=== PATIENT | male | born 1990 | race Caucasian/White ===

== ENCOUNTER 2019-09-12 11:23 | Emergency (ER) | payer SELFPAY ==
--- NOTE | 2019-09-12 13:21 | EDM.PDOC ---
ED HPI GENERAL MEDICAL PROBLEM - General Chief Complaint: Eye Problems Stated Complaint: POSSIBLE PINK EYE Time Seen by Provider: 09/12/19 13:16 Source of Information: Reports: Patient History Limitations: Reports: No Limitations - History of Present Illness INITIAL COMMENTS - FREE TEXT/NARRATIVE: HISTORY AND PHYSICAL: History of present illness: Patient is a 28-year-old male who presents to the emergency room with complaints of bilateral eye irritation and waking up with drainage/matted eyes. He reports he is concerned he may have pinkeye. Has not been exposed to anyone who is been sick. Denies any chemical exposure or foreign body concerns. Offers no systemic complaints at this time. Tetanus is up-to-date. Review of systems: As per history of present illness and below otherwise all systems reviewed and negative. Past medical history: As per history of present illness and as reviewed below otherwise noncontributory. Surgical history: As per history of present illness and as reviewed below otherwise noncontributory. Social history: See social history for further information Family history: As per history of present illness and as reviewed below otherwise noncontributory. Physical exam: General: Well-developed and well-nourished 28-year-old male. Alert and oriented. Nontoxic-appearing and in no acute distress. HEENT: Atraumatic, normocephalic, pupils equal and reactive bilaterally, negative for conjunctival pallor or scleral icterus, bilateral scleral injection noted, scant light green crusty drainage to lower lash line, mucous membranes moist, TMs normal bilaterally, throat clear, neck supple, nontender, trachea midline. No drooling or trismus noted. No meningeal signs. No hot potato voice noted. Lungs: Clear to auscultation, breath sounds equal bilaterally, chest nontender. Heart: S1S2, regular rate and rhythm without overt murmur Abdomen: Soft, nondistended, nontender. Skin: Intact, warm, dry. No lesions or rashes noted. Extremities: Atraumatic, moves all extremities per self without difficulty or deficits. Neurovascular unremarkable. Neuro: Awake, alert, oriented. Cranial nerves II through XII unremarkable. Cerebellum unremarkable. Motor and sensory unremarkable throughout. Exam nonfocal. Notes: Medication and supportive care measures were reviewed and discussed. Voices understanding and is agreeable to plan of care. Denies any further questions or concerns at this time. Diagnostics: None Therapeutics: None Prescription: Polytrim Impression: Conjunctivitis, bilateral Plan: 1. Use the eyedrop as directed. Good handwashing as this is contagious. 2. Follow-up with ophthalmology if symptoms continue, worsen or new symptoms develop. 3. Return to the ED as needed and as discussed. Definitive disposition and diagnosis as appropriate pending reevaluation and review of above. Bilateral Eye Pain Score (Numeric/FACES): 3 - Related Data Allergies Allergy/AdvReac Type Severity Reaction Status Date / Time No Known Allergies Allergy Verified 09/12/19 12:19 Home Meds: Home Meds Polymyxin B/Trimethoprim [PolyTrim Ophth Soln] 1 drop EYEBOTH QID 7 Days #1 bottle 09/12/19 [Rx] Past Medical History Musculoskeletal History: Reports: Fracture Other Musculoskeletal History: L shoulder - Infectious Disease History 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 Social & Family History - Family History Family Medical History: Noncontributory - Tobacco Use Smoking Status *Q: Never Smoker Second Hand Smoke Exposure: No - Caffeine Use Caffeine Use: Reports: Coffee - Recreational Drug Use Recreational Drug Use: No ED ROS GENERAL - Review of Systems Review Of Systems: Comprehensive ROS is negative, except as noted in HPI. ED EXAM GENERAL W FULL EYE - Physical Exam Exam: See Below (See dictation) Course - Vital Signs Last Recorded V/S: Last Vital Signs Temp 97.5 F 09/12/19 12:20 Pulse 62 09/12/19 12:20 Resp 16 09/12/19 12:20 BP 146/91 H 09/12/19 12:20 Pulse Ox 97 09/12/19 12:20 Departure - Departure Time of Disposition: 13:21 Disposition: Home, Self-Care 01 Clinical Impression: Conjunctivitis Qualifiers: Conjunctivitis type: acute Acute conjunctivitis type: bacterial Laterality: bilateral Qualified Code(s): H10.33 - Unspecified acute conjunctivitis, bilateral - Discharge Information Prescriptions: Polymyxin B/Trimethoprim [PolyTrim Ophth Soln] 1 drop EYEBOTH QID 7 Days #1 bottle Instructions: Bacterial Conjunctivitis, [id number] Referrals: PCP,None [Primary Care Provider] - Forms: ED Department Discharge Additional Instructions: The following information is given to patients seen in the emergency department who are being discharged to home. This information is to outline your options for follow-up care. We provide all patients seen in our emergency department with a follow-up referral. The need for follow-up, as well as the timing and circumstances, are variable depending upon the specifics of your emergency department visit. If you don't have a primary care physician on staff, we will provide you with a referral. We always advise you to contact your personal physician following an emergency department visit to inform them of the circumstance of the visit and for follow-up with them and/or the need for any referrals to a consulting specialist. The emergency department will also refer you to a specialist when appropriate. This referral assures that you have the opportunity for follow-up care with a specialist. All of these measure are taken in an effort to provide you with optimal care, which includes your follow-up. Under all circumstances we always encourage you to contact your private physician who remains a resource for coordinating your care. When calling for follow-up care, please make the office aware that this follow-up is from your recent emergency room visit. If for any reason you are refused follow-up, please contact the [facility] Emergency Department at and asked to speak to the emergency department charge nurse. [facility] [address] [place] [address] [id number] 1. Use the eyedrop as directed. Good handwashing as this is contagious. 2. Follow-up with ophthalmology if symptoms continue, worsen or new symptoms develop. 3. Return to the ED as needed and as discussed. Sepsis Event Note - Evaluation Sepsis Screening Result: No Definite Risk - Focused Exam Vital Signs: Vital Signs Temp Pulse Resp BP Pulse Ox 09/12/19 12:20 97.5 F 62 16 146/91 H 97 Date Exam was Performed: 09/12/19 Time Exam was Performed: 13:22
== END 2019-09-12 13:28 | disposition home or self-care (01) ==
LOC: MW.ED 11:23
CPT/HCPCS: 99282; 99283

== ENCOUNTER 2020-02-19 20:06 | Emergency (ER) | payer BC ==
[2020-02-19] MEDS ORDERED: Lidocaine 1% 10 ML MDV INJECT ONE (21:12)
--- NOTE | 2020-02-19 21:16 | EDM.PDOC ---
ED HPI GENERAL MEDICAL PROBLEM - General Chief Complaint: Laceration Stated Complaint: LEFT HAND INJURY LACERATION Time Seen by Provider: 02/19/20 21:14 Source of Information: Reports: Patient History Limitations: Reports: No Limitations - History of Present Illness INITIAL COMMENTS - FREE TEXT/NARRATIVE: HISTORY AND PHYSICAL: History of present illness: This is a 29-year-old gentleman who presents ER today secondary to a laceration to his nondominant left hand between the webspace of his thumb and index finger that occurred while he was trying to open up a package of chicken. Patient denies any neurological deficits at this time. Patient denies any other symptomatology. Patient has any fevers, shakes, chills, nausea, vomiting, diarrhea, dysuria, frequency, urgency, chest pain, shortness of breath. Patient's tetanus status is up-to-date. Patient has no significant past medical history. Patient has no known drug allergies. Patient denies any alcohol or drugs. Review of systems: As per history of present illness and below otherwise all systems reviewed and negative. Past medical history: As per history of present illness and as reviewed below otherwise noncontributory. Surgical history: As per history of present illness and as reviewed below otherwise noncontributory. Social history: No reported history of drug or alcohol abuse. Family history: As per history of present illness and as reviewed below otherwise noncontributory. Physical exam: HEENT: Atraumatic, normocephalic, pupils reactive, negative for conjunctival pallor or scleral icterus, mucous membranes moist, throat clear, neck supple, nontender, trachea midline. Lungs: Clear to auscultation, breath sounds equal bilaterally, chest nontender. Heart: S1S2, regular, negative for clicks, rubs, or JVD. Abdomen: Soft, nondistended, nontender. Negative for masses or hepatosplenomegaly. Negative for costovertebral tenderness. Pelvis: Stable nontender. Genitourinary: Deferred. Rectal: Deferred. Extremities: Atraumatic, negative for cords or calf pain. Neurovascular unremarkable. Neuro: Awake, alert, oriented. Cranial nerves II through XII unremarkable. Cerebellum unremarkable. Motor and sensory unremarkable throughout. Exam nonfocal. CR physical exam is significant for a 2 cm laceration at the webspace between his thumb and index finger of his left hand. Patient is neurovascularly intact. No tendon or ligamentous injury is identified. Patient is neurologically intact. Patient has no foreign body identified. Therapeutics: Impression: 29-year-old gentleman who presents ER today with a laceration to his left hand. Patient's tetanus status up-to-date. Patient will be sutured in the ED. Plan: [] Definitive disposition and diagnosis as appropriate pending reevaluation and review of above. Left Hand Pain Score (Numeric/FACES): 3 - Related Data Allergies Allergy/AdvReac Type Severity Reaction Status Date / Time No Known Allergies Allergy Verified 02/19/20 20:19 Home Meds: Home Meds . [No Known Home Meds] 02/19/20 [History] Past Medical History - Past Health History Medical/Surgical History: Denies Medical/Surgical History HEENT History: Reports: None Cardiovascular History: Reports: None Respiratory History: Reports: None Gastrointestinal History: Reports: None Genitourinary History: Reports: None Musculoskeletal History: Reports: Fracture Other Musculoskeletal History: Left Collarbone Neurological History: Reports: None Psychiatric History: Reports: None Endocrine/Metabolic History: Reports: None Hematologic History: Reports: None Immunologic History: Reports: None Oncologic (Cancer) History: Reports: None Dermatologic History: Reports: None - Infectious Disease History Infectious Disease History: Reports: None - Past Surgical History Head Surgeries/Procedures: Reports: None Social & Family History - Family History Family Medical History: Noncontributory - Tobacco Use Smoking Status *Q: Never Smoker Second Hand Smoke Exposure: Yes - Caffeine Use Caffeine Use: Reports: Coffee - Alcohol Use Days Per Week of Alcohol Use: 7 Number of Drinks Per Day: 2 Total Drinks Per Week: 14 - Recreational Drug Use Recreational Drug Use: No ED ROS GENERAL - Review of Systems Review Of Systems: Comprehensive ROS is negative, except as noted in HPI. ED EXAM, SKIN/RASH Exam: See Below ED SKIN PROCEDURES - Laceration/Wound Repair Left Hand Appearance: Linear, Clean Distal NVT: Neuro & Vascular Intact, No Tendon Injury Anesthetic Type: Local Local Anesthesia - Lidocaine (Xylocaine): 1% Plain Local Anesthetic Volume: 2cc Skin Prep: Saline, Sterile Drape Saline Irrigation (cc's): 100 Exploration/Debridement/Repair: Wound Explored Closed with: Sutures Lac/Wound length In cm: 2 Suture Size: 4-0 # of Sutures: 2 Suture Type: Prolene Sterile Dressing Applied: Nurse Tetanus Status Addressed: Yes Complications: No Course - Vital Signs Last Recorded V/S: Last Vital Signs Temp 97.6 F 02/19/20 20:19 Pulse 65 02/19/20 20:19 Resp 14 02/19/20 20:19 BP 177/105 H 02/19/20 20:19 Pulse Ox 98 02/19/20 20:19 - Orders/Labs/Meds Meds: Medications Discontinued Medications Generic Name Dose Route Start Last Admin Trade Name Ceferino PRN Reason Stop Dose Admin Lidocaine HCl 10 ml 02/19/20 21:12 Xylocaine 1% INJECT 02/19/20 21:13 ONETIME ONE Lidocaine HCl Confirm 02/19/20 21:16 Xylocaine-Mpf 1% Administered 02/19/20 21:17 Dose 5 ml .ROUTE .STK-MED ONE Departure - Departure Time of Disposition: 21:24 Disposition: Home, Self-Care 01 Condition: Good Clinical Impression: Laceration of hand - Discharge Information *PRESCRIPTION DRUG MONITORING PROGRAM REVIEWED*: Not Applicable *COPY OF PRESCRIPTION DRUG MONITORING REPORT IN PATIENT TADEO: Not Applicable Instructions: Laceration Care, Adult, Sutures, [place], or Adhesive Wound Closure, [id number] Referrals: PCP,None [Primary Care Provider] - Forms: ED Department Discharge Additional Instructions: You have 2 sutures placed today in the emergency department. You will need a wound check and 2 days if there is any signs or symptoms of infection including redness, warmth, drainage. Sutures should be removed in 7 days. Sepsis Event Note (ED) - Evaluation Sepsis Screening Result: No Definite Risk - Focused Exam Vital Signs: Vital Signs Temp Pulse Resp BP Pulse Ox 02/19/20 20:19 97.6 F 65 14 177/105 H 98
== END 2020-02-19 21:35 | disposition home or self-care (01) ==
LOC: MW.ED 20:06
DX: S61.412A Laceration without foreign body of left hand, initial encounter (principal); Z77.22 Contact with and (suspected) exposure to environmental tobacco smoke (acute) (chronic); W26.8XXA Contact with other sharp object(s), not elsewhere classified, initial encounter
CPT/HCPCS: 12001; 99282; J2001

== ENCOUNTER 2020-09-23 18:16 | Emergency (ER) | payer BC, OTHER ==
--- NOTE | 2020-09-23 18:27 | PCM.SN.2 ---
- Free Text/Narrative Note: Heart rate = 76 bpm, normal sinus rhythm, normal QRS interval, no STEMI. EKG and rhythm strip interpreted by me at 1818
[2020-09-23] MEDS ORDERED: Meclizine 25 MG Tab PO ONE (19:20)
--- NOTE | 2020-09-23 19:25 | EDM.PDOC ---
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 The dizziness was a feeling that things were moving but he also had some visual rotational vertigo. The rotational vertigo that he visualized was not intense or prolonged. He has had some dizzy episodes since that last about 15 seconds or more. He does not have diaphoresis. He does have nausea when he is dizzy. He cannot bring the dizziness on with change in position change in head position and it happens as well at rest and with exertion. He frequently can walk across the room and exert himself without having an episode. He has no chest pain or shortness of breath. Patient does not smoke, he is not diabetic, he does not get treated for blood pressure or cholesterol. His family history is negative except for a stroke in his mother related to a drug use disorder. Patient saw an emergency service provider in [facility] the day of his dizziness and had lab work which I reviewed. His hemoglobin was 16 but his white count was 12.1 the rest of the lab looks unremarkable including comprehensive metabolic panel, urine analysis. He says his EKG and chest x-ray were normal. Review of systems: As per history of present illness and below otherwise all systems reviewed and negative. Past medical history: As per history of present illness and as reviewed below otherwise noncontributory. Surgical history: As per history of present illness and as reviewed below otherwise noncontributory. Social history: No reported history of drug or alcohol abuse. Family history: As per history of present illness and as reviewed below otherwise noncontributory. Physical exam: Constitutional - well developed, well-nourished and in no acute distress HEENT - normocephalic, no evidence of trauma - external nose and mouth normal - no mass in neck and no JVD - mucosae moist. TMs normal. Sinus nontender. EYES - full EOM, PERRL, no icterus - no evidence of inflammation, injection, or drainage Respiratory - no respiratory distress, equal bilateral expansion, lungs clear to auscultation and no abnormal lung sounds Cardiovascular - Regular Rhythm with S1 and S2 appreciated and no murmur, gallop or rub. GI - abdomen soft without distension or organomegaly - normal bowel sounds - no guard or rebound Musculoskeletal no gross deformity of long bones or joints - no tenderness, swelling or edema Neurologic -tender neurologic exam is normal. Alert and oriented times four - CN II-XII grossly intact - motor sensory and coordination symmetrically normal Station and gait is normal including heel-to-toe walk. He says he had trouble with ataxia when he was coming into the department because he was having one of his spells. 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 [] Therapeutics: [] Impression: [] Plan: [] Definitive disposition and diagnosis as appropriate pending reevaluation and review of above. - Related Data Allergies Allergy/AdvReac Type Severity Reaction Status Date / Time No Known Allergies Allergy Verified 09/23/20 18:57 Home Meds: Home Meds Meclizine HCl 25 mg PO TID PRN #21 tablet 09/23/20 [Rx] Past Medical History - Past Health History Medical/Surgical History: Denies Medical/Surgical History HEENT History: Reports: None Cardiovascular History: Reports: None Respiratory History: Reports: None Gastrointestinal History: Reports: None Genitourinary History: Reports: None Musculoskeletal History: Reports: Fracture Other Musculoskeletal History: Left Collarbone Neurological History: Reports: None Psychiatric History: Reports: None Endocrine/Metabolic History: Reports: None Hematologic History: Reports: None Immunologic History: Reports: None Oncologic (Cancer) History: Reports: None Dermatologic History: Reports: None - Infectious Disease History 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 - Past Surgical History Head Surgeries/Procedures: Reports: None Social & Family History - Family History Family Medical History: No Pertinent Family History - Caffeine Use Caffeine Use: Reports: Energy Drinks - Recreational Drug Use Recreational Drug Use: No ED ROS GENERAL - Review of Systems Review Of Systems: Comprehensive ROS is negative, except as noted in HPI. ED EXAM, GENERAL - Physical Exam Exam: See Below Free Text/Narrative:: My physical exam is in the HPI Course - Vital Signs Text/Narrative:: 2034 hours. Patient's episodes have stopped with the medication. CT is normal. Patient is very low risk for stroke. Letter to have primary care keep an eye on his blood pressure and the patient to try meclizine and stay well-hydrated. Last Recorded V/S: Last Vital Signs Temp 36.8 C 09/23/20 18:35 Pulse 71 09/23/20 20:31 Resp 18 09/23/20 20:31 BP 134/93 H 09/23/20 20:31 Pulse Ox 96 09/23/20 20:31 - Orders/Labs/Meds Orders: Active Orders 24 hr Category Date Time Status Blood Glucose Check, Bedside [RC] ONETIME Care 09/23/20 19:20 Active Labs: Laboratory Tests 09/23/20 09/23/20 Range/Units 18:22 19:36 WBC 12.23 H (4.0-11.0) K/uL RBC 5.76 (4.50-5.90) M/uL Hgb 17.1 H (13.0-17.0) g/dL Hct 50.8 H (38.0-50.0) % MCV 88.2 (80.0-98.0) fL MCH 29.7 (27.0-32.0) pg MCHC 33.7 (31.0-37.0) g/dL RDW Std Deviation 44.2 (28.0-62.0) fl RDW Coeff of Konstantin 14 (11.0-15.0) % Plt Count 301 (150-400) K/uL MPV 11.00 (7.40-12.00) fL Neut % (Auto) 37.1 L (48.0-80.0) % Lymph % (Auto) 52.8 H (16.0-40.0) % [place] % (Auto) 7.4 (0.0-15.0) % Eos % (Auto) 2.1 (0.0-7.0) % Baso % (Auto) 0.6 (0.0-1.5) % Neut # (Auto) 4.5 (1.4-5.7) K/uL Lymph # (Auto) 6.5 H (0.6-2.4) K/uL [place] # (Auto) 0.9 H (0.0-0.8) K/uL Eos # (Auto) 0.3 (0.0-0.7) K/uL Baso # (Auto) 0.1 (0.0-0.1) K/uL Nucleated RBC % 0.0 /100WBC Nucleated RBCs # 0 K/uL POC Glucose 88 (60-110) mg/dL Meds: Medications Discontinued Medications Generic Name Dose Route Start Last Admin Trade Name Freq PRN Reason Stop Dose Admin Meclizine HCl 25 mg 09/23/20 19:20 09/23/20 19:36 Antivert PO 09/23/20 19:21 25 mg ONETIME ONE Administration Departure - Departure Time of Disposition: 20:35 Disposition: Home, Self-Care 01 Condition: Good Clinical Impression: Vertigo - Discharge Information Prescriptions: Meclizine HCl 25 mg PO TID PRN #21 tablet PRN Reason: Dizziness Instructions: Dizziness, [id number] Referrals: PCP,None [Primary Care Provider] - Forms: ED Department Discharge Additional Instructions: Stay well-hydrated. Try the medicine. Closest ENT is in [place]. 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 This information is to outline your options for follow-up care. We provide all patients seen in our emergency department with a follow-up referral. The need for follow-up, as well as the timing and circumstances, are variable depending upon the specifics of your emergency department visit. If you don't have a primary care physician on staff, we will provide you with a referral. We always advise you to contact your personal physician following an emergency department visit to inform them of the circumstance of the visit and for follow-up with them and/or the need for any referrals to a consulting specialist. The emergency department will also refer you to a specialist when appropriate. This referral assures that you have the opportunity for follow-up care with a specialist. All of these measure are taken in an effort to provide you with optimal care, which includes your follow-up. Under all circumstances we always encourage you to contact your private physician who remains a resource for coordinating your care. When calling for follow-up care, please make the office aware that this follow-up is from your recent emergency room visit. If for any reason you are refused follow-up, please contact the [facility] Emergency Department at and asked to speak to the emergency department charge nurse. Sepsis Event Note (ED) - Evaluation Sepsis Screening Result: No Definite Risk - Focused Exam Vital Signs: Vital Signs Temp Pulse Resp BP Pulse Ox 09/23/20 20:31 71 18 134/93 H 96 09/23/20 18:35 36.8 C 75 22 H 170/116 H 96 - My Orders Last 24 Hours: My Active Orders 09/23/20 19:20 Blood Glucose Check, Bedside [RC] ONETIME - Assessment/Plan Last 24 Hours: My Active Orders 09/23/20 19:20 Blood Glucose Check, Bedside [RC] ONETIME
--- NOTE | 2020-09-23 19:59 | CT ---
Indication: Dizziness Technique: Noncontrast head CT Comparison: No comparison Findings: Axial noncontrast images through the brain parenchyma demonstrates no acute intracranial hemorrhage or mass. No midline shift. No abnormal extra-axial air fluid collections were seen. Paranasal sinuses mastoid air cells, skull and scalp appear unremarkable. Impression: No acute intracranial hemorrhage or mass. Please note that all CT scans at this facility use dose modulation, iterative reconstruction, and/or weight-based dosing when appropriate to reduce radiation dose to as low as reasonably achievable. Dictated by Sheree Collins MD @ Sep 23 2020 7:54PM Signed by Dr. Sheree Collins @ Sep 23 2020 7:57PM
== END 2020-09-23 20:38 | disposition home or self-care (01) ==
LOC: MW.ED 18:16
DX: R42 Dizziness and giddiness (principal); R11.0 Nausea
CPT/HCPCS: 36415; 70450; 82962; 85025; 93005; 99284; A9270; 99282

== ENCOUNTER 2020-09-28 19:06 | Observation (INO) | payer OTHER ==
--- NOTE | 2020-09-28 19:14 | EDM.PDOC ---
ED HPI GENERAL MEDICAL PROBLEM - General Stated Complaint: CHEST PAIN Time Seen by Provider: 09/28/20 19:07 - History of Present Illness INITIAL COMMENTS - FREE TEXT/NARRATIVE: 30-year-old male who recently started metoprolol for hypertension who is presen ting with chest pain. He describes a currently 1 out of 10 substernal chest pressure that is associated with right arm numbness and radiation into the right jaw that started approximately 1 to 2 hours prior to arrival at its worst it was 5 out of 10. No tearing pain it did not radiate to the back no shortness of breath no cough no change with exertion or deep breathing. He denies lower extremity pain or swelling. He did used to be a moderate daily drinker but has not had any alcohol in the last 7 days. Patient was seen relatively recently last week for dizziness and hypertension he had negative work-ups at that time he followed up with his primary provider as directed and was started on metoprolol earlier this week. He reports he been compliant with that. He did take 4 baby aspirin's about 2 hours ago. He denies history of similar symptoms in the past. He is a non-smoker. Upper Chest Pain Score (Numeric/FACES): 1 - Related Data Allergies Allergy/AdvReac Type Severity Reaction Status Date / Time No Known Allergies Allergy Verified 09/28/20 19:20 Home Meds: Home Meds Metoprolol Tartrate 25 mg PO DAILY 09/28/20 [History] Past Medical History - Past Health History Medical/Surgical History: Denies Medical/Surgical History HEENT History: Reports: None Cardiovascular History: Reports: None Respiratory History: Reports: None Gastrointestinal History: Reports: None Genitourinary History: Reports: None Musculoskeletal History: Reports: Fracture Other Musculoskeletal History: Left Collarbone Neurological History: Reports: None Psychiatric History: Reports: None Endocrine/Metabolic History: Reports: None Hematologic History: Reports: None Immunologic History: Reports: None Oncologic (Cancer) History: Reports: None Dermatologic History: Reports: None - Infectious Disease History 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 - Past Surgical History Head Surgeries/Procedures: Reports: None Social & Family History - Family History Family Medical History: No Pertinent Family History - Caffeine Use Caffeine Use: Reports: Energy Drinks ED ROS GENERAL - Review of Systems Review Of Systems: See Below Free Text/Narrative/Comment: General: No fever. Skin: No rash. Eyes: No vision problems. ENT: No sore throat. Neck: No neck stiffness. Respiratory: No shortness of breath. Cardiac: Per HPI Gastrointestinal: No nausea, vomiting or abdominal pain. Urinary: No dysuria. Musculoskeletal: No myalgias/arthralgias. Neurologic: No headache. ED EXAM, GENERAL - Physical Exam Exam: See Below Free Text/Narrative:: General Appearance: No acute distress, appears comfortable Skin: No rash HEENT: Normocephalic/atraumatic, sclera anicteric, mucous membranes moist Neck: Normal range of motion Chest and Lungs: Bilateral breath sounds, clear to auscultation Cardiovascular: Regular rate and rhythm, no murmur Abdomen: Soft, non-tender Back: Normal Musculoskeletal: No edema or tenderness Neurologic: Awake, alert, no obvious deficits, moving all extremities Psychiatric: Appropriate, cooperative #1 Interpretation EKG Date: 09/28/20 Time: 19:13 EKG Interpretation Comments: Normal sinus rhythm with a rate of 62 LA interval borderline prolonged at 220 right axis deviation no acute ischemia Course - Vital Signs Last Recorded V/S: Last Vital Signs Temp 96.3 F L 09/28/20 19:15 Pulse 61 09/28/20 19:35 Resp 14 09/28/20 19:35 BP 137/84 09/28/20 19:35 Pulse Ox 98 09/28/20 19:35 - Orders/Labs/Meds Orders: Active Orders 24 hr Category Date Time Status Patient Status [ADT] Routine ADT 09/28/20 22:28 Ordered EKG 12 Lead [EKG Documentation Completion] [RC] ROUTINE Care 09/28/20 21:10 Active Nitroglycerin [Nitrostat] Med 09/28/20 19:15 Active 0.4 mg SL Q5M PRN Sodium Chloride 0.9% [Saline Flush] Med 09/28/20 19:15 Active 10 ml FLUSH ASDIRECTED PRN Sodium Chloride 0.9% [Saline Flush] Med 09/28/20 19:15 Active 2.5 ml FLUSH ASDIRECTED PRN Saline Lock Insert [OM.PC] Stat Oth 09/28/20 19:15 Ordered Medication Orders Nitroglycerin (Nitrostat) 0.4 mg SL Q5M PRN PRN Reason: Chest Pain Last Admin: 09/28/20 19:29 Dose: 0.4 mg Documented by: BREWKRI Sodium Chloride (Saline Flush) 10 ml FLUSH ASDIRECTED PRN PRN Reason: Keep Vein Open Sodium Chloride (Saline Flush) 2.5 ml FLUSH ASDIRECTED PRN PRN Reason: Keep Vein Open Labs: Laboratory Tests 09/28/20 09/28/20 09/28/20 Range/Units 17:15 17:16 19:15 WBC 10.25 (4.0-11.0) K/uL RBC 5.70 (4.50-5.90) M/uL Hgb 17.2 H (13.0-17.0) g/dL Hct 50.4 H (38.0-50.0) % MCV 88.4 (80.0-98.0) fL MCH 30.2 (27.0-32.0) pg MCHC 34.1 (31.0-37.0) g/dL RDW Std Deviation 44.2 (28.0-62.0) fl RDW Coeff of Konstantin 14 (11.0-15.0) % Plt Count 284 (150-400) K/uL MPV 11.20 (7.40-12.00) fL Neut % (Auto) 40.8 L (48.0-80.0) % Lymph % (Auto) 48.0 H (16.0-40.0) % [place] % (Auto) 8.0 (0.0-15.0) % Eos % (Auto) 2.6 (0.0-7.0) % Baso % (Auto) 0.6 (0.0-1.5) % Neut # (Auto) 4.2 (1.4-5.7) K/uL Lymph # (Auto) 4.9 H (0.6-2.4) K/uL [place] # (Auto) 0.8 (0.0-0.8) K/uL Eos # (Auto) 0.3 (0.0-0.7) K/uL Baso # (Auto) 0.1 (0.0-0.1) K/uL Nucleated RBC % 0.0 /100WBC Nucleated RBCs # 0 K/uL D-Dimer, Quantitative 0.23 (0.0-0.50) mg/L FEU Sodium 139 (136-148) mmol/L Potassium 3.9 (3.5-5.1) mmol/L Chloride 103 (98-107) mmol/L Carbon Dioxide 22.6 (21.0-32.0) mmol/L BUN 21 H (7.0-18.0) mg/dL Creatinine 1.1 (0.8-1.3) mg/dL Est Cr Clr Drug Dosing 100.47 mL/min Estimated GFR (MDRD) > 60.0 ml/min Glucose 96 (74-106) mg/dL Calcium 9.6 (8.5-10.1) mg/dL Total Bilirubin 0.3 (0.2-1.0) mg/dL AST 34 (15-37) IU/L ALT 87 H (14-63) IU/L Alkaline Phosphatase 55 (46-116) U/L Troponin I < 0.050 (0.000-0.056) ng/mL Total Protein 8.6 H (6.4-8.2) g/dL Albumin 4.5 (3.4-5.0) g/dL Globulin 4.1 H (2.6-4.0) g/dL Albumin/Globulin Ratio 1.1 (0.9-1.6) SARS-CoV-2 RNA ([facility]) (NEGATIVE) 09/28/20 09/28/20 Range/Units 20:30 21:26 WBC (4.0-11.0) K/uL RBC (4.50-5.90) M/uL Hgb (13.0-17.0) g/dL Hct (38.0-50.0) % MCV (80.0-98.0) fL MCH (27.0-32.0) pg MCHC (31.0-37.0) g/dL RDW Std Deviation (28.0-62.0) fl RDW Coeff of Konstantin (11.0-15.0) % Plt Count (150-400) K/uL MPV (7.40-12.00) fL Neut % (Auto) (48.0-80.0) % Lymph % (Auto) (16.0-40.0) % [place] % (Auto) (0.0-15.0) % Eos % (Auto) (0.0-7.0) % Baso % (Auto) (0.0-1.5) % Neut # (Auto) (1.4-5.7) K/uL Lymph # (Auto) (0.6-2.4) K/uL [place] # (Auto) (0.0-0.8) K/uL Eos # (Auto) (0.0-0.7) K/uL Baso # (Auto) (0.0-0.1) K/uL Nucleated RBC % /100WBC Nucleated RBCs # K/uL D-Dimer, Quantitative (0.0-0.50) mg/L FEU Sodium (136-148) mmol/L Potassium (3.5-5.1) mmol/L Chloride (98-107) mmol/L Carbon Dioxide (21.0-32.0) mmol/L BUN (7.0-18.0) mg/dL Creatinine (0.8-1.3) mg/dL Est Cr Clr Drug Dosing mL/min Estimated GFR (MDRD) ml/min Glucose (74-106) mg/dL Calcium (8.5-10.1) mg/dL Total Bilirubin (0.2-1.0) mg/dL AST (15-37) IU/L ALT (14-63) IU/L Alkaline Phosphatase (46-116) U/L Troponin I < 0.050 (0.000-0.056) ng/mL Total Protein (6.4-8.2) g/dL Albumin (3.4-5.0) g/dL Globulin (2.6-4.0) g/dL Albumin/Globulin Ratio (0.9-1.6) SARS-CoV-2 RNA ([facility]) NEGATIVE (NEGATIVE) Meds: Medications Generic Name Dose Route Start Last Admin Trade Name Freq PRN Reason Stop Dose Admin Nitroglycerin 0.4 mg 09/28/20 19:15 09/28/20 19:29 Nitrostat SL 0.4 mg Q5M PRN Administration Chest Pain Sodium Chloride 10 ml 09/28/20 19:15 Saline Flush FLUSH ASDIRECTED PRN Keep Vein Open Sodium Chloride 2.5 ml 09/28/20 19:15 Saline Flush FLUSH ASDIRECTED PRN Keep Vein Open Discontinued Medications Generic Name Dose Route Start Last Admin Trade Name Freq PRN Reason Stop Dose Admin Acetaminophen 650 mg 09/28/20 19:37 09/28/20 19:50 Tylenol PO 09/28/20 19:38 650 mg NOW ONE Administration Departure - Departure Time of Disposition: 22:29 Disposition: Refer to Observation Condition: Good Clinical Impression: Chest pain - Discharge Information Referrals: PCP,None [Primary Care Provider] - Sepsis Event Note (ED) - Focused Exam Vital Signs: Vital Signs Temp Pulse Resp BP BP Pulse Ox 09/28/20 19:35 61 14 137/84 98 09/28/20 19:29 149/96 H 09/28/20 19:15 96.3 F L 70 18 162/108 H 99 - My Orders Last 24 Hours: My Active Orders 09/28/20 19:15 Nitroglycerin [Nitrostat] 0.4 mg SL Q5M PRN Sodium Chloride 0.9% [Saline Flush] 10 ml FLUSH ASDIRECTED PRN Sodium Chloride 0.9% [Saline Flush] 2.5 ml FLUSH ASDIRECTED PRN Saline Lock Insert [OM.PC] Stat 09/28/20 21:10 EKG 12 Lead [EKG Documentation Completion] [RC] ROUTINE 09/28/20 22:28 Patient Status [ADT] Routine - Assessment/Plan Last 24 Hours: My Active Orders 09/28/20 19:15 Nitroglycerin [Nitrostat] 0.4 mg SL Q5M PRN Sodium Chloride 0.9% [Saline Flush] 10 ml FLUSH ASDIRECTED PRN Sodium Chloride 0.9% [Saline Flush] 2.5 ml FLUSH ASDIRECTED PRN Saline Lock Insert [OM.PC] Stat 09/28/20 21:10 EKG 12 Lead [EKG Documentation Completion] [RC] ROUTINE 09/28/20 22:28 Patient Status [ADT] Routine Assessment:: 30-year-old male with history of hypertension newly on metoprolol 25 mg daily presenting with chest pain. It is a tightness sensation it does radiate to the neck. Will calculate a heart score. His EKG shows mild right axis deviation but no signs of acute ischemia. Given this finding CBC CMP D-dimer troponin order chest x-ray as well. I do think he is low risk for PE and would not further evaluate if D-dimer is normal. No concern for Covid. Final disposition pending response to therapy and work-up as well as heart score. He currently has 1 out of 10 substernal chest discomfort so we will trial nitroglycerin. 1940: sx improved with single nitro, however patient now with headache and will give APAP. 2014: Initial labs normal, CXR unremarkable. HEART score is 4. Patient is symp miladis-free after his nitroglycerin blood pressure also much improved. Given his heart score and after discussion with the patient will discuss with internal medicine about admission for observation for moderate risk chest pain with serial enzymes and reassessment. 2228: Pt discussed with Dr. Ramsey, will admit for observation to telemetry.
[2020-09-28] MEDS ORDERED: Sodium Chloride 0.9% 2.5 ML Syringe FLUSH PRN (19:15)
[2020-09-28] MEDS ORDERED: Nitroglycerin 0.4 MG Tab.SL SL PRN (19:15)
[2020-09-28] MEDS ORDERED: Sodium Chloride 0.9% 10 ML Syringe FLUSH PRN (19:15)
[2020-09-28] MEDS ORDERED: Acetaminophen 325 MG Tab PO ONE (19:37)
--- NOTE | 2020-09-28 19:58 | CR ---
INDICATION: Chest pain, tightness TECHNIQUE: Chest radiograph 1 view COMPARISON: None FINDINGS: Moderate degradation of image quality noted due to body habitus and lordotic technique. Mediastinum: The mediastinum is normal in appearance. The heart silhouette is normal in size and morphology. Lung: Both lungs are unremarkable in appearance. No sign of pleural effusion seen. No pneumothorax is identified. Bone and Soft tissue: Metallic plate ORIF of the left clavicle is noted. IMPRESSION: 1. No acute cardiopulmonary disease is seen. Dictated by Young López MD @ 09/28/2020 7:56:23 PM Dictated by: Young López MD @ 09/28/2020 19:56:27 (Electronically Signed)
[2020-09-28 20:10] LABS: BLOOD UREA NITROGEN,BUN 21 mg/dL (7.0-18.0); CARBON DIOXIDE,CO2 22.6 mmol/L (21.0-32.0); CHLORIDE,CL 103 mmol/L (98-107); GLUCOSE RANDOM 96 mg/dL (74-106); POTASSIUM,K 3.9 mmol/L (3.5-5.1); SODIUM,NA 139 mmol/L (136-148)
[2020-09-28] MEDS ORDERED: Ondansetron 4 MG/2 ML SDV IVPUSH PRN (23:03)
[2020-09-28] MEDS ORDERED: Albuterol/Ipratropium 3.0-0.5 MG/3 ML Neb Soln NEB PRN (23:03)
[2020-09-28] MEDS ORDERED: Acetaminophen 325 MG Tab PO PRN (23:03)
[2020-09-28] MEDS ORDERED: Pantoprazole 40 MG in Sodium Chloride 0.9% 10 ML IV ONE (23:03)
[2020-09-28] MEDS: Aspirin 81 MG Tab.Chew PO SCH (23:49)
[2020-09-29 06:38] LABS: HEMOGLOBIN A1C 5.4 %
--- NOTE | 2020-09-29 08:30 | PCM.HP.2 ---
<Elizabet Gomez - Last Filed: 09/29/20 12:29> H&P History of Present Illness - General Date of Service: 09/29/20 Admit Problem/Dx: Admission Diagnosis/Problem Admission Diagnosis/Problem Chest pain Source of Information: Patient - History of Present Illness Initial Comments - Free Text/Narative: Patient is a 30-year-old male with a significant past medical history of hypertension presenting yesterday to ED after having acute onset chest pain with radiation into the jaw and right arm. Mentions he was driving to [place] when when the symptoms appeared and therefore presented himself to the ED here in [place]. Patient states she has had similar episode like this before in the past which resolved and were almost always accompanied with elevated blood pressure. Patient has been started on his metoprolol and has been taking his medication without fail however during this particular episode of pain did not check his blood pressure. Patient otherwise denies any fevers, chills, bodies, shortness of breath. ED course: EKG sinus rhythm with pulse rate of 62. Borderline prolonged IN interval at 220 with right axis deviation; however no acute signs of ischemia. Troponin x1 -. Chest x-ray negative Bedside: Patient was admitted for ACS rule out. Troponin x3 - vital stable. Cholesterol panel however did show elevated total cholesterol and elevated triglycerides. TSH within normal limits. Covid negative. Patient at bedside does not endorse any pain and discomfort is time. 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 No acute distress at this time. Upper Chest Pain Score (Numeric/FACES): 1 - Related Data Allergies/Adverse Reactions: Allergies Allergy/AdvReac Type Severity Reaction Status Date / Time No Known Allergies Allergy Verified 09/28/20 19:20 Home Medications: Home Meds Metoprolol Tartrate 25 mg PO DAILY 09/28/20 [History] Acetaminophen [Tylenol] 650 mg PO Q4H PRN tablet 09/29/20 [Rx] Aspirin 81 mg PO DAILY tab.chew 09/29/20 [Rx] atorvaSTATin [Lipitor] 20 mg PO BEDTIME 30 Days #30 tab 09/29/20 [Rx] Past Medical History - Past Health History Medical/Surgical History: Denies Medical/Surgical History HEENT History: Reports: None Cardiovascular History: Reports: Hypertension Respiratory History: Reports: None Gastrointestinal History: Reports: None Genitourinary History: Reports: None Musculoskeletal History: Reports: Fracture Other Musculoskeletal History: Left Collarbone Neurological History: Reports: None Psychiatric History: Reports: None Endocrine/Metabolic History: Reports: None Hematologic History: Reports: None Immunologic History: Reports: None Oncologic (Cancer) History: Reports: None Dermatologic History: Reports: None - Infectious Disease History 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, MRSA - Past Surgical History Head Surgeries/Procedures: Reports: None Social & Family History - Family History Family Medical History: No Pertinent Family History - Tobacco Use Tobacco Use Status *Q: Never Tobacco User Second Hand Smoke Exposure: No - Caffeine Use Caffeine Use: Reports: Energy Drinks - Recreational Drug Use Recreational Drug Use: No H&P Review of Systems - Review of Systems: Review Of Systems: See Below General: Reports: No Symptoms HEENT: Reports: No Symptoms Pulmonary: Reports: No Symptoms Cardiovascular: Reports: No Symptoms Gastrointestinal: Reports: No Symptoms Genitourinary: Reports: No Symptoms Musculoskeletal: Reports: Neck Pain Skin: Reports: No Symptoms Psychiatric: Reports: No Symptoms Neurological: Reports: No Symptoms. Denies: Dizziness, Headache Exam - Exam Exam: See Below - Vital Signs Vital Signs: Last Vital Signs Temp 98.1 F 09/29/20 07:35 Pulse 52 L 09/29/20 07:35 Resp 17 09/29/20 07:35 BP 120/79 09/29/20 07:35 Pulse Ox 97 09/29/20 07:35 Weight: 101.4 kg - Exam Quality Assessment: No: Supplemental Oxygen General: Alert, Oriented, Cooperative HEENT: EOMI, Mucosa Moist & [place] Neck: Supple, Trachea Midline Lungs: Clear to Auscultation, Normal Respiratory Effort Cardiovascular: Regular Rate, Regular Rhythm GI/Abdominal Exam: Soft, Non-Tender Back Exam: Other (+spurling test of neck ) Skin: Warm, Dry Neurological: Cranial Nerves Intact Neuro Extensive - Mental Status: Alert, Oriented x3 Neuro Extensive - Motor, Sensory, Reflexes: CN II-XII Intact - Patient Data Lab Results Last 24 hrs: Laboratory Results - last 24 hr 09/28/20 09/28/20 09/28/20 Range/Units 17:15 17:16 19:15 WBC 10.25 (4.0-11.0) K/uL RBC 5.70 (4.50-5.90) M/uL Hgb 17.2 H (13.0-17.0) g/dL Hct 50.4 H (38.0-50.0) % MCV 88.4 (80.0-98.0) fL MCH 30.2 (27.0-32.0) pg MCHC 34.1 (31.0-37.0) g/dL RDW Std Deviation 44.2 (28.0-62.0) fl RDW Coeff of Konstantin 14 (11.0-15.0) % Plt Count 284 (150-400) K/uL MPV 11.20 (7.40-12.00) fL Neut % (Auto) 40.8 L (48.0-80.0) % Lymph % (Auto) 48.0 H (16.0-40.0) % [place] % (Auto) 8.0 (0.0-15.0) % Eos % (Auto) 2.6 (0.0-7.0) % Baso % (Auto) 0.6 (0.0-1.5) % Neut # (Auto) 4.2 (1.4-5.7) K/uL Lymph # (Auto) 4.9 H (0.6-2.4) K/uL [place] # (Auto) 0.8 (0.0-0.8) K/uL Eos # (Auto) 0.3 (0.0-0.7) K/uL Baso # (Auto) 0.1 (0.0-0.1) K/uL Nucleated RBC % 0.0 /100WBC Nucleated RBCs # 0 K/uL D-Dimer, Quantitative 0.23 (0.0-0.50) mg/L FEU Sodium 139 (136-148) mmol/L Potassium 3.9 (3.5-5.1) mmol/L Chloride 103 (98-107) mmol/L Carbon Dioxide 22.6 (21.0-32.0) mmol/L BUN 21 H (7.0-18.0) mg/dL Creatinine 1.1 (0.8-1.3) mg/dL Est Cr Clr Drug Dosing 100.47 mL/min Estimated GFR (MDRD) > 60.0 ml/min Glucose 96 (74-106) mg/dL Hemoglobin A1c (4.5 - 6.2) % Calcium 9.6 (8.5-10.1) mg/dL Phosphorus (2.6-4.7) mg/dL Magnesium (1.8-2.4) mg/dL Total Bilirubin 0.3 (0.2-1.0) mg/dL AST 34 (15-37) IU/L ALT 87 H (14-63) IU/L Alkaline Phosphatase 55 (46-116) U/L Troponin I < 0.050 (0.000-0.056) ng/mL Total Protein 8.6 H (6.4-8.2) g/dL Albumin 4.5 (3.4-5.0) g/dL Globulin 4.1 H (2.6-4.0) g/dL Albumin/Globulin Ratio 1.1 (0.9-1.6) Triglycerides (0-200) mg/dL Cholesterol (50-200) mg/dL LDL Cholesterol, Calc (60-180) mg/dL VLDL Cholesterol (5-55) mg/dL HDL Cholesterol (40-60) mg/dL Cholesterol/HDL Ratio (3.3-6.0) TSH 3rd Generation (0.36-3.74) uIU/mL SARS-CoV-2 RNA (KAYLEIGH) (NEGATIVE) 09/28/20 09/28/20 09/29/20 Range/Units 20:30 21:26 00:25 WBC (4.0-11.0) K/uL RBC (4.50-5.90) M/uL Hgb (13.0-17.0) g/dL Hct (38.0-50.0) % MCV (80.0-98.0) fL MCH (27.0-32.0) pg MCHC (31.0-37.0) g/dL RDW Std Deviation (28.0-62.0) fl RDW Coeff of Konstantin (11.0-15.0) % Plt Count (150-400) K/uL MPV (7.40-12.00) fL Neut % (Auto) (48.0-80.0) % Lymph % (Auto) (16.0-40.0) % [place] % (Auto) (0.0-15.0) % Eos % (Auto) (0.0-7.0) % Baso % (Auto) (0.0-1.5) % Neut # (Auto) (1.4-5.7) K/uL Lymph # (Auto) (0.6-2.4) K/uL [place] # (Auto) (0.0-0.8) K/uL Eos # (Auto) (0.0-0.7) K/uL Baso # (Auto) (0.0-0.1) K/uL Nucleated RBC % /100WBC Nucleated RBCs # K/uL D-Dimer, Quantitative (0.0-0.50) mg/L FEU Sodium (136-148) mmol/L Potassium (3.5-5.1) mmol/L Chloride (98-107) mmol/L Carbon Dioxide (21.0-32.0) mmol/L BUN (7.0-18.0) mg/dL Creatinine (0.8-1.3) mg/dL Est Cr Clr Drug Dosing mL/min Estimated GFR (MDRD) ml/min Glucose (74-106) mg/dL Hemoglobin A1c (4.5 - 6.2) % Calcium (8.5-10.1) mg/dL Phosphorus (2.6-4.7) mg/dL Magnesium (1.8-2.4) mg/dL Total Bilirubin (0.2-1.0) mg/dL AST (15-37) IU/L ALT (14-63) IU/L Alkaline Phosphatase (46-116) U/L Troponin I < 0.050 < 0.050 (0.000-0.056) ng/mL Total Protein (6.4-8.2) g/dL Albumin (3.4-5.0) g/dL Globulin (2.6-4.0) g/dL Albumin/Globulin Ratio (0.9-1.6) Triglycerides (0-200) mg/dL Cholesterol (50-200) mg/dL LDL Cholesterol, Calc (60-180) mg/dL VLDL Cholesterol (5-55) mg/dL HDL Cholesterol (40-60) mg/dL Cholesterol/HDL Ratio (3.3-6.0) TSH 3rd Generation (0.36-3.74) uIU/mL SARS-CoV-2 RNA (KAYLEIGH) NEGATIVE (NEGATIVE) 09/29/20 09/29/20 09/29/20 Range/Units 06:00 06:00 06:00 WBC 6.66 (4.0-11.0) K/uL RBC 5.28 (4.50-5.90) M/uL Hgb 15.3 (13.0-17.0) g/dL Hct 46.7 (38.0-50.0) % MCV 88.4 (80.0-98.0) fL MCH 29.0 (27.0-32.0) pg MCHC 32.8 (31.0-37.0) g/dL RDW Std Deviation 43.6 (28.0-62.0) fl RDW Coeff of Konstantin 14 (11.0-15.0) % Plt Count 246 (150-400) K/uL MPV 11.70 (7.40-12.00) fL Neut % (Auto) 39.7 L (48.0-80.0) % Lymph % (Auto) 47.9 H (16.0-40.0) % [place] % (Auto) 8.7 (0.0-15.0) % Eos % (Auto) 2.9 (0.0-7.0) % Baso % (Auto) 0.8 (0.0-1.5) % Neut # (Auto) 2.7 (1.4-5.7) K/uL Lymph # (Auto) 3.2 H (0.6-2.4) K/uL [place] # (Auto) 0.6 (0.0-0.8) K/uL Eos # (Auto) 0.2 (0.0-0.7) K/uL Baso # (Auto) 0.1 (0.0-0.1) K/uL Nucleated RBC % 0.0 /100WBC Nucleated RBCs # 0 K/uL D-Dimer, Quantitative (0.0-0.50) mg/L FEU Sodium (136-148) mmol/L Potassium (3.5-5.1) mmol/L Chloride (98-107) mmol/L Carbon Dioxide (21.0-32.0) mmol/L BUN (7.0-18.0) mg/dL Creatinine (0.8-1.3) mg/dL Est Cr Clr Drug Dosing mL/min Estimated GFR (MDRD) ml/min Glucose (74-106) mg/dL Hemoglobin A1c 5.4 (4.5 - 6.2) % Calcium (8.5-10.1) mg/dL Phosphorus 4.3 (2.6-4.7) mg/dL Magnesium 2.2 (1.8-2.4) mg/dL Total Bilirubin (0.2-1.0) mg/dL AST (15-37) IU/L ALT (14-63) IU/L Alkaline Phosphatase (46-116) U/L Troponin I (0.000-0.056) ng/mL Total Protein (6.4-8.2) g/dL Albumin (3.4-5.0) g/dL Globulin (2.6-4.0) g/dL Albumin/Globulin Ratio (0.9-1.6) Triglycerides 275 H (0-200) mg/dL Cholesterol 241 H (50-200) mg/dL LDL Cholesterol, Calc 150 (60-180) mg/dL VLDL Cholesterol 55 (5-55) mg/dL HDL Cholesterol 36 L (40-60) mg/dL Cholesterol/HDL Ratio 6.7 H (3.3-6.0) TSH 3rd Generation 3.51 (0.36-3.74) uIU/mL SARS-CoV-2 RNA (KAYLEIGH) (NEGATIVE) Result Diagrams: 09/29/20 06:00 09/28/20 19:15 Sepsis Event Note - Evaluation Sepsis Screening Result: No Definite Risk - Focused Exam Vital Signs: Vital Signs Temp Pulse Resp BP Pulse Ox 09/29/20 07:35 98.1 F 52 L 17 120/79 97 09/29/20 04:00 98.0 F 75 16 116/80 98 09/28/20 23:03 96.6 F L 56 L 16 133/95 H 95 09/28/20 22:41 56 L 14 128/82 97 - Problem List (1) Chest pain SNOMED Code(s): 58231613 ICD Code: R07.9 - CHEST PAIN, UNSPECIFIED Status: Acute Problem List Initiated/Reviewed/Updated: Yes Orders Last 24hrs: Active Orders 24 hr Category Date Time Status Patient Status [ADT] Routine ADT 09/28/20 22:28 Active Ambulate [RC] ASDIRECTED Care 09/28/20 23:03 Active Antiembolic Devices [RC] .PRN Care 09/28/20 23:04 Active EKG 12 Lead [EKG Documentation Completion] [RC] ROUTINE Care 09/28/20 21:10 Active Oxygen Therapy [RC] PRN Care 09/28/20 23:03 Active Pulse Oximetry [RC] PRN Care 09/28/20 23:03 Active RT Aerosol Therapy [RC] ASDIRECTED Care 09/28/20 23:06 Active Telemetry Monitoring [Cardiac Monitoring] [RC] Q8H Care 09/28/20 22:39 Active VTE/DVT Education [RC] PER UNIT ROUTINE Care 09/28/20 23:03 Active Vital Signs [RC] Q4H Care 09/28/20 23:03 Active Heart Healthy Diet [DIET] Diet 09/29/20 Breakfast Active Echo Comp wo Cont [US] Routine Exams 09/28/20 23:10 Ordered Acetaminophen [TylenoL] Med 09/28/20 23:03 Active 650 mg PO Q4H PRN Albuterol/Ipratropium [DuoNeb 3.0-0.5 MG/3 ML] Med 09/28/20 23:03 Active 3 ml NEB Q4HRRT PRN Aspirin Med 09/28/20 23:15 Active 81 mg PO DAILY Nitroglycerin [Nitrostat] Med 09/28/20 19:15 Active 0.4 mg SL Q5M PRN Ondansetron [Zofran] Med 09/28/20 23:03 Active 4 mg IVPUSH Q4H PRN Sodium Chloride 0.9% [Saline Flush] Med 09/28/20 19:15 Active 10 ml FLUSH ASDIRECTED PRN Sodium Chloride 0.9% [Saline Flush] Med 09/28/20 19:15 Active 2.5 ml FLUSH ASDIRECTED PRN atorvaSTATin [Lipitor] Med 09/29/20 21:00 Active 40 mg PO BEDTIME Saline Lock Insert [OM.PC] Stat Oth 09/28/20 19:15 Ordered Sequential Compression Device [OM.PC] Per Unit Routine Oth 09/28/20 23:04 Ordered Resuscitation Status Routine Resus Stat 09/28/20 23:03 Ordered Medication Orders Acetaminophen (Tylenol) 650 mg PO Q4H PRN PRN Reason: Pain (Mild 1-3)/fever Albuterol/Ipratropium (Duoneb 3.0-0.5 Mg/3 Ml) 3 ml NEB Q4HRRT PRN PRN Reason: Shortness Of Breath/wheezing Aspirin (Aspirin) 81 mg PO DAILY LUIS E Last Admin: 09/28/20 23:49 Dose: Not Given Documented by: ALBIMAR Atorvastatin Calcium (Lipitor) 40 mg PO BEDTIME LUIS E Nitroglycerin (Nitrostat) 0.4 mg SL Q5M PRN PRN Reason: Chest Pain Last Admin: 09/28/20 19:29 Dose: 0.4 mg Documented by: JM Ondansetron HCl (Zofran) 4 mg IVPUSH Q4H PRN PRN Reason: Nausea/Vomiting Sodium Chloride (Saline Flush) 10 ml FLUSH ASDIRECTED PRN PRN Reason: Keep Vein Open Sodium Chloride (Saline Flush) 2.5 ml FLUSH ASDIRECTED PRN PRN Reason: Keep Vein Open Assessment/Plan Comment:: Assessment: 1. Chest pain/ACS rule out 2. Hypertension 3. Past medical history of hypertension, hyperlipidemia Plan. Admit to observation. Full code. I's and O's routine vitals per routine. Telemetry. 1. Following morning ACS was ruled out with troponin x3 being negative. Patient states pain had resolved and vitals were otherwise stable. Latest blood pressure of 120/79 with a pulse rate of 75 and oxygen of 97% on room air. Discussed other etiologies of pain including neck pain. Cervical C-spine did not show any acute processes however did suggest that probably poor posture is contributing to neck pain with radiation to right arm. Chest x-ray was negative. EKG did show a prolonged IN interval. Advised to follow-up in outpatient setting for blood pressure management. Due to history of chest pain, elevated lipid panel; started patient on atorvastatin 40 mg daily and to continue metoprolol. Outpatient stress test prescription written and provided to the patient. Follow-up PCP also provided Patient requesting discharge. <John Ramsey - Last Filed: 09/29/20 16:42> H&P History of Present Illness - General Admit Problem/Dx: Admission Diagnosis/Problem Admission Diagnosis/Problem Chest pain Exam - Vital Signs Vital Signs: Last Vital Signs Temp 37.1 C 09/29/20 11:54 Pulse 59 L 09/29/20 11:54 Resp 17 09/29/20 11:54 BP 127/79 09/29/20 11:54 Pulse Ox 97 09/29/20 11:54 - Patient Data Lab Results Last 24 hrs: Laboratory Results - last 24 hr 09/28/20 09/28/20 09/28/20 Range/Units 17:15 17:16 19:15 WBC 10.25 (4.0-11.0) K/uL RBC 5.70 (4.50-5.90) M/uL Hgb 17.2 H (13.0-17.0) g/dL Hct 50.4 H (38.0-50.0) % MCV 88.4 (80.0-98.0) fL MCH 30.2 (27.0-32.0) pg MCHC 34.1 (31.0-37.0) g/dL RDW Std Deviation 44.2 (28.0-62.0) fl RDW Coeff of Konstantin 14 (11.0-15.0) % Plt Count 284 (150-400) K/uL MPV 11.20 (7.40-12.00) fL Neut % (Auto) 40.8 L (48.0-80.0) % Lymph % (Auto) 48.0 H (16.0-40.0) % [place] % (Auto) 8.0 (0.0-15.0) % Eos % (Auto) 2.6 (0.0-7.0) % Baso % (Auto) 0.6 (0.0-1.5) % Neut # (Auto) 4.2 (1.4-5.7) K/uL Lymph # (Auto) 4.9 H (0.6-2.4) K/uL [place] # (Auto) 0.8 (0.0-0.8) K/uL Eos # (Auto) 0.3 (0.0-0.7) K/uL Baso # (Auto) 0.1 (0.0-0.1) K/uL Nucleated RBC % 0.0 /100WBC Nucleated RBCs # 0 K/uL D-Dimer, Quantitative 0.23 (0.0-0.50) mg/L FEU Sodium 139 (136-148) mmol/L Potassium 3.9 (3.5-5.1) mmol/L Chloride 103 (98-107) mmol/L Carbon Dioxide 22.6 (21.0-32.0) mmol/L BUN 21 H (7.0-18.0) mg/dL Creatinine 1.1 (0.8-1.3) mg/dL Est Cr Clr Drug Dosing 100.47 mL/min Estimated GFR (MDRD) > 60.0 ml/min Glucose 96 (74-106) mg/dL Hemoglobin A1c (4.5 - 6.2) % Calcium 9.6 (8.5-10.1) mg/dL Phosphorus (2.6-4.7) mg/dL Magnesium (1.8-2.4) mg/dL Total Bilirubin 0.3 (0.2-1.0) mg/dL AST 34 (15-37) IU/L ALT 87 H (14-63) IU/L Alkaline Phosphatase 55 (46-116) U/L Troponin I < 0.050 (0.000-0.056) ng/mL Total Protein 8.6 H (6.4-8.2) g/dL Albumin 4.5 (3.4-5.0) g/dL Globulin 4.1 H (2.6-4.0) g/dL Albumin/Globulin Ratio 1.1 (0.9-1.6) Triglycerides (0-200) mg/dL Cholesterol (50-200) mg/dL LDL Cholesterol, Calc (60-180) mg/dL VLDL Cholesterol (5-55) mg/dL HDL Cholesterol (40-60) mg/dL Cholesterol/HDL Ratio (3.3-6.0) TSH 3rd Generation (0.36-3.74) uIU/mL SARS-CoV-2 RNA (KAYLEIGH) (NEGATIVE) 09/28/20 09/28/20 09/29/20 Range/Units 20:30 21:26 00:25 WBC (4.0-11.0) K/uL RBC (4.50-5.90) M/uL Hgb (13.0-17.0) g/dL Hct (38.0-50.0) % MCV (80.0-98.0) fL MCH (27.0-32.0) pg MCHC (31.0-37.0) g/dL RDW Std Deviation (28.0-62.0) fl RDW Coeff of Konstantin (11.0-15.0) % Plt Count (150-400) K/uL MPV (7.40-12.00) fL Neut % (Auto) (48.0-80.0) % Lymph % (Auto) (16.0-40.0) % [place] % (Auto) (0.0-15.0) % Eos % (Auto) (0.0-7.0) % Baso % (Auto) (0.0-1.5) % Neut # (Auto) (1.4-5.7) K/uL Lymph # (Auto) (0.6-2.4) K/uL [place] # (Auto) (0.0-0.8) K/uL Eos # (Auto) (0.0-0.7) K/uL Baso # (Auto) (0.0-0.1) K/uL Nucleated RBC % /100WBC Nucleated RBCs # K/uL D-Dimer, Quantitative (0.0-0.50) mg/L FEU Sodium (136-148) mmol/L Potassium (3.5-5.1) mmol/L Chloride (98-107) mmol/L Carbon Dioxide (21.0-32.0) mmol/L BUN (7.0-18.0) mg/dL Creatinine (0.8-1.3) mg/dL Est Cr Clr Drug Dosing mL/min Estimated GFR (MDRD) ml/min Glucose (74-106) mg/dL Hemoglobin A1c (4.5 - 6.2) % Calcium (8.5-10.1) mg/dL Phosphorus (2.6-4.7) mg/dL Magnesium (1.8-2.4) mg/dL Total Bilirubin (0.2-1.0) mg/dL AST (15-37) IU/L ALT (14-63) IU/L Alkaline Phosphatase (46-116) U/L Troponin I < 0.050 < 0.050 (0.000-0.056) ng/mL Total Protein (6.4-8.2) g/dL Albumin (3.4-5.0) g/dL Globulin (2.6-4.0) g/dL Albumin/Globulin Ratio (0.9-1.6) Triglycerides (0-200) mg/dL Cholesterol (50-200) mg/dL LDL Cholesterol, Calc (60-180) mg/dL VLDL Cholesterol (5-55) mg/dL HDL Cholesterol (40-60) mg/dL Cholesterol/HDL Ratio (3.3-6.0) TSH 3rd Generation (0.36-3.74) uIU/mL SARS-CoV-2 RNA (KAYLEIGH) NEGATIVE (NEGATIVE) 09/29/20 09/29/20 09/29/20 Range/Units 06:00 06:00 06:00 WBC 6.66 (4.0-11.0) K/uL RBC 5.28 (4.50-5.90) M/uL Hgb 15.3 (13.0-17.0) g/dL Hct 46.7 (38.0-50.0) % MCV 88.4 (80.0-98.0) fL MCH 29.0 (27.0-32.0) pg MCHC 32.8 (31.0-37.0) g/dL RDW Std Deviation 43.6 (28.0-62.0) fl RDW Coeff of Konstantin 14 (11.0-15.0) % Plt Count 246 (150-400) K/uL MPV 11.70 (7.40-12.00) fL Neut % (Auto) 39.7 L (48.0-80.0) % Lymph % (Auto) 47.9 H (16.0-40.0) % [place] % (Auto) 8.7 (0.0-15.0) % Eos % (Auto) 2.9 (0.0-7.0) % Baso % (Auto) 0.8 (0.0-1.5) % Neut # (Auto) 2.7 (1.4-5.7) K/uL Lymph # (Auto) 3.2 H (0.6-2.4) K/uL [place] # (Auto) 0.6 (0.0-0.8) K/uL Eos # (Auto) 0.2 (0.0-0.7) K/uL Baso # (Auto) 0.1 (0.0-0.1) K/uL Nucleated RBC % 0.0 /100WBC Nucleated RBCs # 0 K/uL D-Dimer, Quantitative (0.0-0.50) mg/L FEU Sodium (136-148) mmol/L Potassium (3.5-5.1) mmol/L Chloride (98-107) mmol/L Carbon Dioxide (21.0-32.0) mmol/L BUN (7.0-18.0) mg/dL Creatinine (0.8-1.3) mg/dL Est Cr Clr Drug Dosing mL/min Estimated GFR (MDRD) ml/min Glucose (74-106) mg/dL Hemoglobin A1c 5.4 (4.5 - 6.2) % Calcium (8.5-10.1) mg/dL Phosphorus 4.3 (2.6-4.7) mg/dL Magnesium 2.2 (1.8-2.4) mg/dL Total Bilirubin (0.2-1.0) mg/dL AST (15-37) IU/L ALT (14-63) IU/L Alkaline Phosphatase (46-116) U/L Troponin I (0.000-0.056) ng/mL Total Protein (6.4-8.2) g/dL Albumin (3.4-5.0) g/dL Globulin (2.6-4.0) g/dL Albumin/Globulin Ratio (0.9-1.6) Triglycerides 275 H (0-200) mg/dL Cholesterol 241 H (50-200) mg/dL LDL Cholesterol, Calc 150 (60-180) mg/dL VLDL Cholesterol 55 (5-55) mg/dL HDL Cholesterol 36 L (40-60) mg/dL Cholesterol/HDL Ratio 6.7 H (3.3-6.0) TSH 3rd Generation 3.51 (0.36-3.74) uIU/mL SARS-CoV-2 RNA (KAYLEIGH) (NEGATIVE) Result Diagrams: 09/29/20 06:00 09/28/20 19:15 Sepsis Event Note - Focused Exam Vital Signs: Vital Signs Temp Pulse Resp BP Pulse Ox 09/29/20 11:54 37.1 C 59 L 17 127/79 97 09/29/20 07:35 36.7 C 52 L 17 120/79 97 Orders Last 24hrs: Active Orders 24 hr Category Date Time Status Patient Status [ADT] Routine ADT 09/28/20 22:28 Active Echo Comp wo Cont [US] Routine Exams 09/28/20 23:10 Ordered DRUG SCREEN, URINE [URCHEM] Routine Lab 09/29/20 08:38 Ordered Saline Lock Insert [OM.PC] Stat Oth 09/28/20 19:15 Ordered Sequential Compression Device [OM.PC] Per Unit Routine Oth 09/28/20 23:04 Ordered Resuscitation Status Routine Resus Stat 09/28/20 23:03 Ordered Assessment/Plan Comment:: I performed a history and physical exam of the patient and discussed management with resident. I have reviewed the residents note and agree with documented findings and plan unless otherwise specified in my note.
[2020-09-29] MEDS: Aspirin 81 MG Tab.Chew PO SCH (10:13)
--- NOTE | 2020-09-29 10:51 | CR ---
Indication: Right-sided neck pain yesterday. Technique: Two views of the cervical spine. Comparison: None Findings: The alignment of the cervical spine is within normal limits. The vertebral body heights are well maintained. No fracture subluxation is identified. Impression: Normal cervical spine x-rays Dictated by Roxie Collins MD @ Sep 29 2020 10:50AM Signed by Dr. Roxie Collins @ Sep 29 2020 10:51AM
[2020-09-29] MEDS ORDERED: atorvaSTATin 40 MG Tab PO SCH (21:00)
== END 2020-09-29 12:55 | disposition home or self-care (01) ==
LOC: MW.ED 19:06 → MW.MS 22:28
PROVIDERS: ADMIT Student in an Organized Health Care Education/Training Program; ATTEND Student in an Organized Health Care Education/Training Program
DX: R07.9 Chest pain, unspecified (principal); I10 Essential (primary) hypertension; Z79.899 Other long term (current) drug therapy; Z79.82 Long term (current) use of aspirin; Z20.822 Contact with and (suspected) exposure to COVID-19
CPT/HCPCS: 36415; 71045; 72040; 80053; 80061; 83036; 83735; 84100; 84443; 84484; 85025; 85379; 87635; 93005; 96374; 99285; A9270; C9113; G0378; 93010; 99234; 99283; U0002

== ENCOUNTER 2022-03-10 09:19 | Emergency (ER) | payer BC, OTHER ==
[2022-03-10] MEDS ORDERED: Azithromycin 250 MG Tab PO ONE (09:49)
== END 2022-03-10 10:19 | disposition home or self-care (01) ==
LOC: MW.ED 09:19
DX: H60.91 Unspecified otitis externa, right ear (principal); I10 Essential (primary) hypertension; Z86.16 Personal history of COVID-19
CPT/HCPCS: 99282; A9270